=== PATIENT | male | born 1990 | race Caucasian/White ===

== ENCOUNTER 2016-07-28 08:44 | Emergency (ER) | payer BC ==
--- NOTE | 2016-07-28 09:00 | ED.PDOC ---
History of Present Illness - General Chief Complaint: Upper Extremity Injury Stated Complaint: right wrist pain Time Seen by Provider: 07/28/16 08:54 Source: patient Exam Limitations: no limitations - History of Present Illness Initial Comments: Ismael Grant 25 y/o male stated pilling the pvc pipe on his boat with his right hand and acccidentally hyperextended wrist.Pain on movement of his wrist afterwards. Occurred: yesterday Pain - Upper Extremity: mild: Wrist, right Method of Injury: twisted Improving Factors: rest Worsening Factors: movement Associated Symptoms: pain on movement no numbness.weakness Allergies/Adverse Reactions: Allergies Acetaminophen [From Tylenol] Allergy (Verified 07/28/16 08:56) Vomitting Home Medications: Ambulatory Orders Naproxen [Naprosyn] 500 mg PO BID #20 tab 07/28/16 Review of Systems - Review of Systems Constitutional: States: no symptoms reported EENTM: States: no symptoms reported Respiratory: States: no symptoms reported Cardiology: States: no symptoms reported Gastrointestinal/Abdominal: States: no symptoms reported Genitourinary: States: no symptoms reported Musculoskeletal: States: see HPI Skin: States: no symptoms reported Neurological: States: no symptoms reported Endocrine: States: no symptoms reported Past Medical History (General) - Patient Medical History Surgical History: other - orif -right forearm - Vaccination History Hx Tetanus, Diphtheria Vaccination: Yes Hx Influenza Vaccination: No - Social History Hx Tobacco Use: Yes - uses vapor cigs now Family Medical History - Family History Father Family History: No Known Living Status: Still Living Physical Exam - Physical Exam General Appearance: Alert, Anxious, No apparent distress Eyes, Ears, Nose, Throat Exam: PERRL/EOMI, normal ENT inspection, TMs normal Neck: non-tender, full range of motion, supple Cardiovascular/Respiratory: regular rate, rhythm, normal peripheral pulses, normal breath sounds Abdominal Exam: non-tender, no organomegaly Back Exam: normal inspection, no CVA tenderness Shoulder Exam: normal inspection, no evidence of injury Elbow/Forearm Exam: normal inspection, no evidence of injury Wrist Exam: limited ROM - right wrist because of pain, soft tissue tenderness Progress - EKG/XRAY/CT XRAY: right wrist -no fracture Departure - Departure Clinical Impression: Sprain of wrist joint Qualifiers: Encounter type: initial encounter Laterality: right Qualified Code(s): S63.501A - Unspecified sprain of right wrist, initial encounter Time of Disposition: 09:33 Disposition: Discharge to Home or Self Care Condition: Good Departure Forms: ED Discharge - Pt. Copy, Patient Portal Self Enrollment Instructions: Wrist Sprain, DI for Wrist Sprain Referrals: Richard Bautista III, MD [Primary Care Provider] - 1-2 Weeks Prescriptions: Naproxen [Naprosyn] 500 mg PO BID #20 tab Home Medications: Ambulatory Orders Naproxen [Naprosyn] 500 mg PO BID #20 tab 07/28/16 Additional Instructions: Follow up with primary md 07/31/2016 as needed patient to call for appointment; Ice pack to affected area 20 minutes 3 x a day during waking hours until better
[2016-07-28 09:03] VITALS: BP 119/79; TEMP 97.8; O2SAT 98
--- NOTE | 2016-07-28 09:42 | RAD ---
EXAM DESCRIPTION: Wrist,Right 3 Views CLINICAL HISTORY: 25 years, Male, pain COMPARISON: None. FINDINGS: Three views the RIGHT wrist were performed. No localized soft tissue swelling or radiopaque foreign body is identified. Bone mineralization is within normal limits. No fracture is identified. Bony alignment is maintained. No suspicious calcification is detected. IMPRESSION: No RIGHT wrist acute bony injury. Electronically signed by: Araseli Ocampo MD 07/28/2016 9:42 AM CDT
== END 2016-07-28 09:48 | disposition home or self-care (01) ==
LOC: ER 08:44
DX: S63.501A Unspecified sprain of right wrist, initial encounter (principal); Z88.6 Allergy status to analgesic agent; Z87.891 Personal history of nicotine dependence; W22.8XXA Striking against or struck by other objects, initial encounter; Y92.814 Boat as the place of occurrence of the external cause

== ENCOUNTER → 2016-10-16 | Outpatient (CLI) | payer BC ==
--- NOTE | 2016-10-17 09:40 | RAD ---
EXAM DESCRIPTION: Shoulder,Left 2 or More Views CLINICAL HISTORY: 26 years,Male,SHOULDER PAIN COMPARISON: None FINDINGS: The left shoulder demonstrates no evidence of fractures or dislocations or acute abnormalities. The acromial clavicular joint is unremarkable. The included lung obrien are unremarkable. There is no significant lateral down sloping of the acromion with no significant narrowing of the supraspinatus outlet. Small sclerotic lesion seen in the scapular neck measuring about 8 mm in size. And a smaller one in the femoral head. IMPRESSION: Left shoulder is unremarkable except for a few small sclerotic lesions one in the scapular neck and one in the humeral head most likely bone islands. Electronically signed by: Richard Taylor MD 10/17/2016 9:38 AM CDT
== END | disposition home or self-care (01) ==
LOC: RAD 16:28
PROVIDERS: ATTEND Family Medicine
DX: M25.512 Pain in left shoulder (principal)